=== PATIENT | male | born 1965 | race Caucasian/White ===

== ENCOUNTER 2023-04-16 09:58 | Outpatient (RCR) | payer BC, SELFPAY | END 2023-07-20 13:38 | disposition home or self-care (01) | PROVIDERS: PCP Family Medicine; Visit Provider Family Medicine | DX: R53.83 Other fatigue (principal); M62.81 Muscle weakness (generalized); E66.01 Morbid (severe) obesity due to excess calories; Z68.39 Body mass index [BMI] 39.0-39.9, adult; Z51.89 Encounter for other specified aftercare | CPT/HCPCS: 97110; 97161 ==

== ENCOUNTER 2024-09-15 10:19 | Outpatient (CLI) | payer BC, SELFPAY ==
--- NOTE | 2024-09-15 11:43 | P.ANES_ITS ---
Anesthesia Charges Start Date/Time Anesthesia Start Date: 09/15/24 Anesthesia Start Time: 11:14 Stop Date/Time Anesthesia Stop Date: 09/15/24 Anesthesia Stop Time: 11:42 Coding CPT Codes CPT Codes: CARMINA LWR INTST NDSC NOS - [id number] ([id number]) P2 - PATIENT W/MILD SYST DISEASE, QK - HOSPITAL TRAY SERVICE WORKER 2-4 CNCRNT ANES PROC, QX - BARREL ROLLER OPERATOR SVC W/ MD MED DIRECTION
--- NOTE | 2024-09-15 11:43 | W.ANESCHARGE ---
Anesthesia Charges Start Date/Time Anesthesia Start Date: 09/15/24 Anesthesia Start Time: 11:14 Stop Date/Time Anesthesia Stop Date: 09/15/24 Anesthesia Stop Time: 11:42 Coding CPT Codes CPT Codes: CARMINA LWR INTST NDSC NOS - [id number] ([id number]) P2 - PATIENT W/MILD SYST DISEASE, QK - HEALTH COUNSELOR 2-4 CNCRNT ANES PROC, QX - VESSEL ORDINARY SEAMAN SVC W/ MD MED DIRECTION
--- NOTE | 2024-09-15 12:28 | P.ANES_ITS ---
Anesthesia Charges Start Date/Time Anesthesia Start Date: 09/15/24 Anesthesia Start Time: 11:14 Stop Date/Time Anesthesia Stop Date: 09/15/24 Anesthesia Stop Time: 11:42 Coding CPT Codes CPT Codes: CARMINA LWR INTST NDSC NOS - [id number] ([id number]) QK - ARCHAEOLOGIST 2-4 CNCRNT CARMINA PROC, QX - DOCTOR OF NATUROPATHIC MEDICINE SVC W/ MD MED DIRECTION, P2 - PATIENT W/MILD SYST DISEASE
--- NOTE | 2024-09-15 12:28 | W.ANESCHARGE ---
Anesthesia Charges Start Date/Time Anesthesia Start Date: 09/15/24 Anesthesia Start Time: 11:14 Stop Date/Time Anesthesia Stop Date: 09/15/24 Anesthesia Stop Time: 11:42 Coding CPT Codes CPT Codes: CARMINA LWR INTST NDSC NOS - [id number] ([id number]) QK - HEALTHCARE INSURANCE SALES AGENT 2-4 CNCRNT CARMINA PROC, QX - HAND THERAPIST SVC W/ MD MED DIRECTION, P2 - PATIENT W/MILD SYST DISEASE
== END 2024-09-15 10:20 | disposition home or self-care (01) ==
LOC: OP CLINIC 10:21
PROVIDERS: PCP Family Medicine; Visit Provider Internal Medicine Gastroenterology
DX: Z12.11 Encounter for screening for malignant neoplasm of colon (principal); D12.3 Benign neoplasm of transverse colon; D12.8 Benign neoplasm of rectum; Z86.0100 Personal history of colon polyps, unspecified
CPT/HCPCS: 00811; 45385; 88305; J2704